=== PATIENT | male | born 1995 | race Caucasian/White ===

== ENCOUNTER 2019-06-08 15:58 | Emergency (ER) | payer SELFPAY ==
[2019-06-08] MEDS ORDERED: Ketorolac Tromethamine 30 MG/ML VIAL ONE (17:28)
[2019-06-08] MEDS ORDERED: Morphine 4 MG/ML VIAL ONE (17:28)
[2019-06-08 17:53] LABS: #Eosinphils 0.2 thou/uL (0.0-0.7); #Lymphocytes 2.2 thou/uL (1.20-3.40); #Neutrophils 10.3 thou/uL (1.40-6.50); %Basophils 0.2 % (0.0-1.0); %Eosinophils 1.6 % (0.0-10.0); %Lymphocytes 16.2 % (21.0-51.0); %Monocytes 7.2 % (0.0-10.0); %Neutrophils 74.8 % (42.0-75.0); Hemoglobin 16.4 g/dL (14.0-18.0); Mean Corpuscular HGB CONC 33.2 g/dL (32.0-36.0); Mean Corpuscular Hemoglobin 29.8 pg (27.0-31.0); Mean Corpuscular Volume 89.9 fL (78.0-98.0); Mean Platelet Volume 8.6 fL (7.4-10.4); Platelet Count 181 thou/uL (130-400); RBC Distribution Width 12.3 % (11.5-14.5); White Blood Cell (WBC) Count 13.8 thou/uL (4.8-10.8)
[2019-06-08] MEDS ORDERED: Bacitracin 1 PK ONE (18:05)
[2019-06-08 18:15] LABS: ALT (SGPT) 13 U/L (8-55); AST (SGOT) 19 U/L (5-34); Albumin 4.6 g/dL (3.5-5.0); Alkaline Phosphatase 84 U/L (40-150); Anion Gap 10 mmol/L (10-20); BUN (Urea Nitrogen) 9 mg/dL (8.9-20.6); Bilirubin, Total 0.7 mg/dL (0.2-1.2); CK (CPK) 533 U/L (30-200); Calc. Creatinine Clearance 0 mL/min (70-130); Calcium 9.5 mg/dL (7.8-10.44); Carbon Dioxide 27 mmol/L (22-29); Chloride 104 mmol/L (98-107); Estimated GFR-MDRD Greater than 90; Globulin 2.9 g/dL (2.4-3.5); Glucose 99 mg/dL (70-105); Lipase 7 U/L (8-78); Potassium 3.6 mmol/L (3.5-5.1); Protein, Total 7.5 g/dL (6.0-8.3); Sodium 137 mmol/L (136-145)
== END 2019-06-08 18:47 | disposition short-term general hospital (02) ==
LOC: ERS 15:58
DX: T25.231A Burn of second degree of right toe(s) (nail), initial encounter (principal); T25.232A Burn of second degree of left toe(s) (nail), initial encounter; T23.002A Burn of unspecified degree of left hand, unspecified site, initial encounter; X19.XXXA Contact with other heat and hot substances, initial encounter
CPT/HCPCS: 36415; 80053; 82550; 83690; 85025; 96374; 96375; J1885; J2270